=== PATIENT | female | born 1955 | race Caucasian/White ===

== ENCOUNTER 2017-11-28 18:50 | Inpatient (IN) ==
[2017-11-28] MEDS ORDERED: fentaNYL 100 MCG/2 ML VIAL IM STA (19:41)
[2017-11-28 20:43] LABS: Basophils % 0.2 % (0.0-0.8); Eosinophils % 0.5 % (0.00-10.9); Hematocrit 30.1 VOL% (35.7-47.0); Hemoglobin 10.6 GM/DL (12.0-16.0); Immature Granulocytes % 0.5 %; Immature Granulocytes Absolute 0.03 #; Lymphocytes # 0.8 10*3/uL (1.4-4.0); Lymphocytes % 14.4 % (21.3-54.2); Mean Corpuscular HGB Conc 35.2 GM/DL (32-36); Mean Corpuscular Hemoglobin 32 PG (27-34); Mean Corpuscular Volume 89.3 FL (87-102); Mean Platelet Volume 9.5 FL (9.6-12.0); Monocytes # 0.4 10*3/uL (0.11-0.8); Neutrophils # 4.4 10*3/uL (1.4-7.4); Neutrophils % 77.4 % (38.7-73.9); Platelet Count 101 T/CUMM (130-400); Red Blood Count 3.37 MC/CUMM (3.8-5.5); Red Cell Distribution Width 12.5 % (9.3-17.3); White Blood Count 5.7 T/CUMM (4-12)
[2017-11-28 20:52] LABS: PT Patient Result 10.7 SECS
[2017-11-28 21:03] LABS: Calcium 8.6 MG/DL (8.5-10.1); Osmolality,Calculated 262.1 MOS/KG (273-304); Potassium 4.3 MMOL/L (3.5-5.1)
[2017-11-28] MEDS ORDERED: SODIUM CHLORIDE 0.9% 1,000 ML IV STA (21:09)
[2017-11-28] MEDS ORDERED: GLUCAGON 1 MG VIAL IM PRN (22:47)
[2017-11-28] MEDS ORDERED: MORPHINE 4 MG/1 ML VIAL IV PRN (22:47)
[2017-11-28] MEDS ORDERED: ONDANSETRON 4 MG/2 ML VIAL IV PRN (22:47)
[2017-11-28] MEDS ORDERED: MAGNESIUM HYDROXIDE SUSP 30 ML UDCUP PO PRN (22:47)
[2017-11-28] MEDS ORDERED: PROMETHAZINE 25 MG/1 ML VIAL IM PRN (22:47)
[2017-11-28] MEDS ORDERED: DEXTROSE 50% 25 GM/50 ML VIAL IV PRN (22:47)
[2017-11-28] MEDS: SODIUM CHLORIDE 0.9% 1,000 ML IV SCH (23:42)
[2017-11-28] MEDS: INSULIN LISPRO 100 UNIT/ML SUBCUT SCH (23:52)
[2017-11-29] MEDS: INSULIN LISPRO 100 UNIT/ML SUBCUT SCH ×5 (03:24→18:59)
[2017-11-29] MEDS ORDERED: ceFAZolin 1,000 MG in SYRINGE 1 EACH IV ONE (05:00)
[2017-11-29] MEDS ORDERED: LACTATED RINGERS 500 ML IV ONE (07:21)
[2017-11-29] MEDS: SODIUM CHLORIDE 0.9% 1,000 ML IV SCH (08:10)
[2017-11-29] MEDS ORDERED: SODIUM CHLORIDE 0.65% NASAL SPRAY 45 ML BOTTLE BOTH NARES PRN (08:24)
[2017-11-29] MEDS ORDERED: ALUMINUM/MAGNES/SIMETH MAX STR 30 ML UDCUP PO PRN (08:24)
[2017-11-29] MEDS ORDERED: MELATONIN 3 MG TABLET PO PRN (08:24)
[2017-11-29] MEDS ORDERED: MORPHINE 4 MG/1 ML VIAL IV PRN (08:30)
[2017-11-29] MEDS ORDERED: oxyCODONE IR 5 MG TABLET PO PRN ×2 (08:30)
[2017-11-29] MEDS ORDERED: PALIPERIDONE 12 MG PO SCH (09:00)
[2017-11-29] MEDS ORDERED: ROPIVACAINE 0.5% 30 ML VIAL ONE (09:32)
[2017-11-29] MEDS ORDERED: ONDANSETRON 4 MG/2 ML VIAL IV PRN (10:16)
[2017-11-29] MEDS ORDERED: MORPHINE 10 MG/1 ML VIAL IV PRN (10:16)
[2017-11-29] MEDS: BENZTROPINE 1 MG TABLET PO SCH ×2 (11:08→21:18)
[2017-11-29] MEDS: URSODIOL 300 MG CAPSULE PO SCH ×3 (11:08→21:17)
[2017-11-29] MEDS: CHOLECALCIFEROL 1,000 UNIT TABLET PO SCH (11:08)
[2017-11-29] MEDS: MULTIVITAMIN (CENTRUM) TABLET PO SCH (11:08)
[2017-11-29] MEDS: LACTATED RINGERS 1,000 ML IV SCH ×2 (11:08→15:57)
[2017-11-29] MEDS: SERTRALINE 50 MG TABLET PO SCH (11:08)
[2017-11-29] MEDS: KETOROLAC 30 MG/1 ML VIAL IV SCH ×3 (11:52→21:20)
[2017-11-29] MEDS ORDERED: PROPOFOL 200 MG/20 ML VIAL IV ONE (12:30)
[2017-11-29] MEDS ORDERED: SEVOFLURANE 1 UNIT/15 MINUTE INH ONE (12:30)
[2017-11-29] MEDS ORDERED: SODIUM CHLORIDE 0.9% 1,000 ML IV ONE (12:31)
[2017-11-29] MEDS ORDERED: ePHEDrine 50 MG/ML AMP ONE (12:31)
[2017-11-29] MEDS ORDERED: ONDANSETRON 4 MG/2 ML VIAL ONE (12:31)
[2017-11-29] MEDS ORDERED: PHENYLEPHRINE 10 MG/1 ML VIAL IV ONE (12:31)
[2017-11-29] MEDS ORDERED: fentaNYL 100 MCG/2 ML VIAL ONE ×2 (12:31→12:34)
[2017-11-29] MEDS ORDERED: SODIUM CHLORIDE 0.9% 250 ML IV ONE (12:31)
[2017-11-29] MEDS: ceFAZolin 1,000 MG in SYRINGE 1 EACH IV SCH ×2 (15:58→22:38)
[2017-11-29] MEDS: GABAPENTIN 100 MG CAPSULE PO SCH (21:17)
[2017-11-29] MEDS: PRAVASTATIN 20 MG TABLET PO SCH (21:17)
[2017-11-29] MEDS: DONEPEZIL 5 MG TABLET PO SCH (21:17)
[2017-11-29] MEDS: LACTULOSE 20 GM/30 ML UDCUP PO SCH (21:18)
[2017-11-29] MEDS: clonazePAM 0.5 MG TABLET PO SCH (21:25)
[2017-11-30] MEDS: INSULIN LISPRO 100 UNIT/ML SUBCUT SCH ×4 (00:43→18:10)
[2017-11-30] MEDS: FONDAPARINUX 2.5 MG/0.5 ML SYRINGE SUBCUT SCH (02:48)
[2017-11-30 05:24] LABS: Basophils % 0.2 % (0.0-0.8); Eosinophils % 0.2 % (0.00-10.9); Hematocrit 28.4 VOL% (35.7-47.0); Hemoglobin 9.6 GM/DL (12.0-16.0); Immature Granulocytes % 0.7 %; Immature Granulocytes Absolute 0.03 #; Lymphocytes # 0.8 10*3/uL (1.4-4.0); Lymphocytes % 18.6 % (21.3-54.2); Mean Corpuscular HGB Conc 33.8 GM/DL (32-36); Mean Corpuscular Hemoglobin 31 PG (27-34); Mean Corpuscular Volume 92.5 FL (87-102); Mean Platelet Volume 9.7 FL (9.6-12.0); Monocytes # 0.6 10*3/uL (0.11-0.8); Neutrophils # 2.9 10*3/uL (1.4-7.4); Neutrophils % 66.3 % (38.7-73.9); Platelet Count 79 T/CUMM (130-400); Red Blood Count 3.07 MC/CUMM (3.8-5.5); Red Cell Distribution Width 13.2 % (9.3-17.3); White Blood Count 4.4 T/CUMM (4-12)
[2017-11-30 05:40] LABS: Osmolality,Calculated 278.8 MOS/KG (273-304); Potassium 4.2 MMOL/L (3.5-5.1)
[2017-11-30 05:48] LABS: Eosinophils 1 % (0-10); Hypochromasia Slight; Lymphocytes 27 % (20-55); Segmented Neutrophils 62 % (50-85); Total Cells Counted 100
[2017-11-30 05:49] LABS: Platelet Estimate Decreased
[2017-11-30] MEDS: BENZTROPINE 1 MG TABLET PO SCH ×2 (08:24→21:18)
[2017-11-30] MEDS: CHOLECALCIFEROL 1,000 UNIT TABLET PO SCH (08:24)
[2017-11-30] MEDS: metFORMIN 850 MG TABLET PO SCH ×3 (08:24→18:11)
[2017-11-30] MEDS: MULTIVITAMIN (CENTRUM) TABLET PO SCH (08:24)
[2017-11-30] MEDS: clonazePAM 0.5 MG TABLET PO SCH ×2 (08:24→21:18)
[2017-11-30] MEDS: URSODIOL 300 MG CAPSULE PO SCH ×3 (08:24→21:18)
[2017-11-30] MEDS: GLIMEPIRIDE 4 MG TABLET PO SCH (08:24)
[2017-11-30] MEDS: SERTRALINE 50 MG TABLET PO SCH (08:27)
[2017-11-30] MEDS ORDERED: MAGNESIUM HYDROXIDE SUSP 30 ML UDCUP PO PRN (11:10)
[2017-11-30] MEDS ORDERED: MAGNESIUM SULF RIDER 2 GM in PREMIX 1 EACH IV PRN (11:11)
[2017-11-30] MEDS ORDERED: MAGNESIUM SULF RIDER 4 GM in PREMIX 1 EACH IV PRN (11:11)
[2017-11-30] MEDS: PRAVASTATIN 20 MG TABLET PO SCH (21:18)
[2017-11-30] MEDS: GABAPENTIN 100 MG CAPSULE PO SCH (21:18)
[2017-11-30] MEDS: DONEPEZIL 5 MG TABLET PO SCH (21:18)
[2017-11-30] MEDS: LACTULOSE 20 GM/30 ML UDCUP PO SCH (21:21)
[2017-12-01] MEDS: FONDAPARINUX 2.5 MG/0.5 ML SYRINGE SUBCUT SCH (01:36)
[2017-12-01] MEDS: INSULIN LISPRO 100 UNIT/ML SUBCUT SCH ×4 (02:06→17:17)
[2017-12-01 08:01] LABS: Basophils % 0.2 % (0.0-0.8); Eosinophils % 0.2 % (0.00-10.9); Hemoglobin 9.4 GM/DL (12.0-16.0); Immature Granulocytes % 0.8 %; Immature Granulocytes Absolute 0.05 #; Lymphocytes # 1.1 10*3/uL (1.4-4.0); Lymphocytes % 16.7 % (21.3-54.2); Mean Corpuscular HGB Conc 34.8 GM/DL (32-36); Mean Corpuscular Hemoglobin 31 PG (27-34); Mean Corpuscular Volume 90.3 FL (87-102); Mean Platelet Volume 9.9 FL (9.6-12.0); Monocytes # 0.7 10*3/uL (0.11-0.8); Monocytes % 11.4 % (1.7-12.7); Neutrophils # 4.5 10*3/uL (1.4-7.4); Neutrophils % 70.7 % (38.7-73.9); Platelet Count 96 T/CUMM (130-400); Red Blood Count 2.99 MC/CUMM (3.8-5.5); Red Cell Distribution Width 13.1 % (9.3-17.3); White Blood Count 6.3 T/CUMM (4-12)
[2017-12-01 08:27] LABS: Hypochromasia Slight
[2017-12-01 08:29] LABS: Platelet Estimate Decreased; Polychromasia 1+
[2017-12-01 08:32] LABS: Calcium 8.7 MG/DL (8.5-10.1); Osmolality,Calculated 266.5 MOS/KG (273-304); Potassium 3.6 MMOL/L (3.5-5.1)
[2017-12-01] MEDS: GLIMEPIRIDE 4 MG TABLET PO SCH (09:11)
[2017-12-01] MEDS: SERTRALINE 50 MG TABLET PO SCH (09:12)
[2017-12-01] MEDS: MULTIVITAMIN (CENTRUM) TABLET PO SCH (09:12)
[2017-12-01] MEDS: URSODIOL 300 MG CAPSULE PO SCH ×2 (09:12→15:54)
[2017-12-01] MEDS: metFORMIN 850 MG TABLET PO SCH ×3 (09:12→17:14)
[2017-12-01] MEDS: BENZTROPINE 1 MG TABLET PO SCH (09:12)
[2017-12-01] MEDS: CHOLECALCIFEROL 1,000 UNIT TABLET PO SCH (09:12)
[2017-12-01] MEDS: clonazePAM 0.5 MG TABLET PO SCH (09:12)
[2017-12-01 17:05] VITALS: BP 145/76
== END 2017-12-01 17:47 | DRG 320 ==
LOC: EDBD → EDUNIT# → N.ED 18:50 → N.EDINP 21:09 → N.3E 22:25
PROVIDERS: ADMIT Orthopaedic Surgery; ATTEND Orthopaedic Surgery